=== PATIENT | male | born 1980 | race Caucasian/White ===

== ENCOUNTER 2018-10-07 13:56 | Emergency (ER) | payer BC ==
[~2018-10-07] VITALS: Ht 180.3 cm; Wt 87.7 kg
[2018-10-07 14:03] VITALS: TEMP 98
[2018-10-07] MEDS ORDERED: MEDROL 4MG DOSPA4 MG PO (15:27)
[2018-10-07 15:43] VITALS: BP 166/84; PULSE 72
== END 2018-10-07 15:44 | disposition home or self-care (01) ==
LOC: COL.ER 13:56
DX: M54.12 Radiculopathy, cervical region (principal); I10 Essential (primary) hypertension; R20.2 Paresthesia of skin; F17.210 Nicotine dependence, cigarettes, uncomplicated